=== PATIENT | female | born 1995 | race Caucasian/White ===

== ENCOUNTER 2018-10-29 00:59 | Emergency (ER) | payer SELFPAY ==
--- NOTE | 2018-10-29 01:54 | PDOC ---
History of Present Illness - General Chief Complaint: Nausea/Vomiting Stated Complaint: VOMITING Time Seen by Provider: 10/29/18 01:53 - History of Present Illness Initial Comments: 10/29/18 02:29 The patient is a 23 year old [place]ish speaking LEP female with no reported PMH who presents to our ED c/o acute onset of vomiting, fever and dizziness. Aunt @ bedside assists in translation and history. States patient started vomiting this evening around 6 p.m. and had 10 episodes of reddish orange vomit. No associated abdominal pain, however patient did c/o headache. Aunt measured temperature at 100.2 and gave patient two Tylenol. Last episode of emesis was 12:30 p.m. tonight. Patient now c/o vertigo (room spinning). States she had two episodes of vertigo last week overnight each lasting a few minutes and waking her from sleep. LMP was two weeks previous. Patient is visiting her aunt from [facility] and arrived two weeks previous. The patient denies numbness/tingling, chest pain, shortness of breath, ear fullness or pain, diarrhea/constipation, dysuria/hematuria. NKDA Surgical: none reported Social: denies toxic habits Past History - Past Medical History Allergies/Adverse Reactions: Allergies Allergy/AdvReac Type Severity Reaction Status Date / Time No Known Allergies Allergy Verified 10/29/18 01:59 Review of Systems - Review of Systems Constitutional: No: Chills, Fever Respiratory: No: Cough, Shortness of Breath Cardiac (ROS): No: Chest Pain, Lightheadedness, Palpitations, Syncope ABD/GI: Yes: Nausea, Vomiting. No: Constipated, Diarrhea Neurological: Yes: Other (vertigo) *Physical Exam - Physical Exam General Appearance: Yes: Nourished, Appropriately Dressed HEENT: positive: Normal Voice, Hearing Grossly Normal Neck: positive: Trachea midline, Supple Respiratory/Chest: positive: Lungs Clear, Normal Breath Sounds Cardiovascular: positive: S1, S2. negative: Edema, Murmur Vascular Pulses: Dorsalis-Pedis (R): 2+, Doralis-Pedis (L): 2+ Musculoskeletal: negative: CVA Tenderness (R), CVA Tenderness (L) Extremity: positive: Normal Capillary Refill, Normal Inspection Integumentary: positive: Normal Color, Dry, Warm Neurologic: positive: Fully Oriented, Alert Heart Score/ECG Review - ECG Impressions Comment:: 10/29/18 05:03 EKG shows HR 78 with TWI in V2, normal intervals, no deviations, no LEN/STD ED Treatment Course - LABORATORY CBC & Chemistry Diagram: 10/29/18 02:28 10/29/18 02:28 Medical Decision Making - Medical Decision Making 10/29/18 02:48 23 year old non-toxic, drowsy but arousable female from [facility] with acute onset of emesis and vertigo. Mildly tachcardic (HR 93) other VS unremarkable @ presentation. 10/29/18 04:00 Urine negative CBC, CMP unremarkable UA shows 2+ ketones Will hydrate Head CT negative for acute bleed/ischemia 10/29/18 04:54 Troponin (-) x1 EKG shows non-specific changes in V2 - counseling services manager to f/u with PMD Patient reassessed @ bedside Symptomatically improved. Will discharge home in care of aunt with return precautions, copies of EKG and head CT for patient to follow-up with primary care either in [facility] or in [facility]. Clinical Impression: Dehydration, non-specific EKG findings 10/29/18 05:57 I discussed the physical exam findings, ancillary test results and final diagnoses with the patient. I answered all of the patient's questions. The patient was satisfied with the care received and felt comfortable with the discharge plan and treatment plan. The patient will return to the Emergency Department with any new, persistent or worsening symptoms. *DC/Admit/Observation/Transfer Diagnosis at time of Disposition: Vomiting, Dizziness - Discharge Dispostion Disposition: HOME Condition at time of disposition: Good Decision to Admit order: No - Referrals Referrals: Leonid Burrell MD [Staff Physician] - - Patient Instructions Printed Discharge Instructions: DI for Vomiting -- Adult, DI for Dizziness- Nonvertigo Additional Instructions: We have evaluated [facility] today for her dizziness and vomiting. All of her labs, an EKG of her heart rhythm and a cat scan of her head showed no concerning findings for a medical emergency. We are providing you with copies of her cat scan and EKG. Please take these documents when she follows up with her primary care doctor. We recommend follow -up here in the [place] and have provided a referral or you can call [facility] [employer] for a list of doctors. Return to the Emergency Department for any new/worsening/concerning symptoms. - Post Discharge Activity
[2018-10-29 01:59] VITALS: TEMP 98.3; BMI 24.8
[2018-10-29 02:45] LABS: BASO % 0.8 % (0-2.0); EOS % 0.1 % (0-4.5); HEMATOCRIT 39.8 % (32.4-45.2); HEMOGLOBIN 13.5 GM/dL (10.7-15.3); LYMPH % 2.8 % (8-40); MCH 32.8 pg (25.7-33.7); MCHC 33.9 g/dl (32.0-36.0); MEAN CELL VOLUME 96.7 fl (80-96); MEAN PLT VOLUME 8.5 fl (7.5-11.1); MONO % 4.5 % (3.8-10.2); NEUT % 91.8 % (42.8-82.8); PLATELET COUNT 256 K/MM3 (134-434); RBC 4.12 M/mm3 (3.60-5.2); RDW 13.1 % (11.6-15.6); WHITE BLOOD COUNT 10.1 K/mm3 (4.0-10.0)
[2018-10-29 03:07] LABS: ALBUMIN 3.8 g/dl (3.4-5.0); ALK PHOS 56 U/L (45-117); ANION GAP 8 MMOL/L (8-16); BILIRUBIN,TOTAL 0.9 mg/dL (0.2-1); BLOOD UREA NITROGEN 17 mg/dL (7-18); CALCIUM 8.4 mg/dL (8.5-10.1); CHLORIDE 106 mmol/L (98-107); CO2 23 mmol/L (21-32); CREATININE 0.6 mg/dL (0.55-1.3); GLUCOSE,RANDOM 98 mg/dL (74-106); POTASSIUM 3.9 mmol/L (3.5-5.1); SGOT/AST 16 U/L (15-37); SGPT/ALT 19 U/L (13-61); SODIUM 138 mmol/L (136-145); TOT PROT 7.3 g/dl (6.4-8.2)
[2018-10-29 03:25] LABS: PH,URINE 5.5 (5.0-8.0); URINE APPEARANCE CLEAR; URINE BILIRUBIN NEGATIVE (NEGATIVE); URINE COLOR YELLOW; URINE GLUCOSE (UA) NEGATIVE (NEGATIVE); URINE KETONE 2+ (NEGATIVE); URINE LEUK ESTERASE NEGATIVE (NEGATIVE); URINE NITRITE NEGATIVE (NEGATIVE); URINE PROTEIN NEGATIVE (NEGATIVE)
[2018-10-29] MEDS ORDERED: MECLIZINE HCL 25 MG TABLET (FP) PO ONE (04:00)
[2018-10-29] MEDS ORDERED: SODIUM CHLORIDE 0.9% 500 ML INFUS.BAG IV ONE ×2 (04:00→04:09)
--- NOTE | 2018-10-29 04:03 | PDOC ---
Attending Attestation - Resident Resident Name: Shelly Castillo - ED Attending Attestation I have performed the following: I have examined & evaluated the patient, The case was reviewed & discussed with the resident, I agree w/resident's findings & plan - HPI HPI: 10/29/18 04:00 23-year-old female currently visiting from [facility] complaining of room spinning dizziness and vomiting on and off throughout the day, patient had a similar episode several days ago. She denies chest pain back pain shortness of breath fever or trauma. - Physicial Exam PE: 10/29/18 04:01 Agree with resident's exam - Medical Decision Making 10/29/18 04:01 23-year-old female with dizziness Labs suggest volume depletion Plan for CT scan of the brain, IV fluid normal saline 2 L boluses as well as meclizine 25 mg by mouth Likely discharge after reevaluation with recommended outpatient follow-up In regards to nonspecific EKG changes, troponin is within normal limits, patient will be given a copy to take with her on discharge
[2018-10-29] MEDS ORDERED: MECLIZINE HCL 25 MG TABLET (FP) ONE (04:07)
[2018-10-29 05:10] LABS: PLATELET ESTIMATE ADEQUATE
[2018-10-29 05:54] VITALS: BP 95/50; PULSE 84
--- NOTE | 2018-10-29 11:37 | EKG ---
Test Reason : Blood Pressure : / mmHG Vent. Rate : 078 BPM Atrial Rate : 078 BPM P-R Int : 148 ms QRS Dur : 084 ms QT Int : 396 ms P-R-T Axes : 067 077 065 degrees QTc Int : 451 ms NORMAL SINUS RHYTHM NONSPECIFIC T WAVE ABNORMALITY ABNORMAL ECG NO PREVIOUS ECGS AVAILABLE Confirmed by Luis Justin MD ([id number]) on 10/29/2018 11:37:05 AM Referred By: Confirmed By:Luis Justin MD
== END 2018-10-29 06:00 | disposition home or self-care (01) ==
LOC: JER 00:59
PROC: 3E0337Z Introduction of Electrolytic and Water Balance Substance into Peripheral Vein, Percutaneous Approach (ICD-10-PCS; principal; 2018-10-29)
DX: E86.0 Dehydration (principal); R42 Dizziness and giddiness; R11.10 Vomiting, unspecified
CPT/HCPCS: 36415; 70450-TC; 80053; 81003; 82550; 82553; 84484; 84703; 85025; 85379; 93005; 93010; 99284-25